=== PATIENT | male | born 1970 | race Caucasian/White ===

== ENCOUNTER 2019-04-07 20:50 | Inpatient (IN) | payer OTHER, SELFPAY ==
[2019-04-07] MEDS ORDERED: Pantoprazole 40 MG VIAL ONE (21:30)
[2019-04-07] MEDS ORDERED: Ondansetron PF 4 MG/2 ML Vial IVP PRN (23:13)
[2019-04-07] MEDS ORDERED: Acetaminophen 325 MG TAB PO PRN (23:13)
[2019-04-07] MEDS ORDERED: HYDROmorphone 0.5 MG/0.5 ML SYRINGE SLOW IVP SCH (23:30)
[2019-04-07] MEDS ORDERED: HYDROmorphone 0.5 MG/0.5 ML SYRINGE ONE (23:32)
[2019-04-07] MEDS ORDERED: Sodium Chloride 0.9% (PF) 10 ML VIAL FS PRN (23:33)
[2019-04-07] MEDS ORDERED: Pantoprazole 40 MG VIAL IVP SCH (23:45)
[2019-04-07 23:50] LABS: Lactic Acid 0.7 mmol/L (0.5-2.2)
--- NOTE | 2019-04-08 00:15 | HP ---
PRIMARY CARE PHYSICIAN: Silvia Swain DO CHIEF COMPLAINT: Abdominal pain since 03:45 p.m. HISTORY OF PRESENT ILLNESS: This is a 48-year-old male with past medical history of GERD, who developed diffuse abdominal pain this afternoon, minutes after eating crackers, described as sharp, burning, cramping, gas like pain that he has never experienced before and 15 minutes later, had a normal bowel movement with no relief of symptoms and proceeded to take Nexium and Rolaids with ongoing severity of pain rated as 10/10 in the absence of nausea or vomiting, prompting ED evaluation. The patient notes increase in belching episodes. He felt well all day and notes his last real meal was the night prior eating nachos loaded with hamburger meat. He denies any fevers, chills, angina, dysuria, prior abdominal surgeries, abdominal bloating and notes the pain has been constant, but intermittent in severity. In tertiary ER , CT abdomen and pelvis revealed a dilated mid small bowel 3 cm in width without obvious obstruction. The patient was administered with multiple doses of IV morphine 8 mg and 4 mg as well as IV fluid boluses, GI cocktail, and IV Toradol with no relief of symptoms. He was transferred to [facility] ER for further evaluation. At bedside, the patient is accompanied by spouse. He notes pain is recurring and probably 8/10 in severity. He has tried various positions to get comfortable with no relief. He has not passed any flatus since last bowel movement earlier this afternoon. He continues to feel unwell. He denies any chronic NSAID use and not sparing Excedrin for headaches. CBC, chemistry, coagulation profile, urinalysis , and toxicology screen were all unremarkable. ER physician notes the patient refused NG tube insertion. Furthermore, on-call surgeon was consulted and small bowel series was ordered. PAST MEDICAL HISTORY: GERD. PAST SURGICAL HISTORY: Right knee repair. SOCIAL HISTORY: The patient is , lives at home with his spouse. He denies illicit drug use. He dips snuff. He drinks 8-10 beers on a nightly basis without withdrawal symptoms. ALLERGIES: NONE DOCUMENTED. REVIEW OF SYSTEMS: Pertinent positives as per HPI. Remainder of review of systems negative. MEDICATIONS: Reviewed as per admission medication reconciliation. FAMILY HISTORY: The patient's father had MA in his 50s. The patient's grandfather also had an MA. PHYSICAL EXAMINATION: VITAL SIGNS: Temperature 98.4, pulse 68, blood pressure 146/103, oxygen saturation 97% on room air; respirations 18. GENERAL APPEARANCE: This is a middle-aged thin male, who is awake, alert, oriented, coherent, lucid, in moderate distress due to abdominal pain. HEENT: Normocephalic, atraumatic. No facial asymmetry. Mucous membranes are moist. Pupils equally round. NECK: Supple. CARDIOVASCULAR: S1, S2. Regular rate and rhythm. No harsh murmurs. No reproducible chest wall tenderness to palpation. LUNGS: Bilateral equal air entry on posterior auscultation. Symmetrical chest expansion noted. No wheezing or rales. ABDOMEN: Soft, nondistended. There is diffuse tenderness to palpation throughout the abdomen with limited evaluation. Hypoactive bowel sounds noted. EXTREMITIES: No edema, cyanosis, or deformity. SKIN: Warm to touch without rash or pallor or abrasion. LABORATORY DATA: WBC 9.2, H and H 14.7/46.3, platelets 227. Coagulation profile with INR 1.0. Sodium 137, potassium 3.5, chloride 98, bicarb 26, glucose 95, BUN and creatinine 7/0.97, GFR 82. LFTs unremarkable. Urinalysis unremarkable. Urine drug screen unremarkable. Tylenol level less than 3. Salicylate level less than 5. Serum alcohol less than 10. IMAGING STUDIES: CT abdomen and pelvis on 04/07/2019 reveals several dilated loops of mid small bowel up to 3 cm in width. Small bowel obstruction is possible, although the cause is not obvious. No acute findings otherwise. No inflammatory changes around the bowel to diagnose a reactive localized ileus. ASSESSMENT: 1. Acute onset abdominal pain, suspected secondary to possible partial small- bowel obstruction. The patient is admitted to observation status in [facility] unit. His pain continues to remain uncontrolled and has required multiple doses of IV morphine as well as IV Toradol and GI cocktail in the ER with any relief. We will obtain a serum lactic acid level to exclude bowel ischemia. We will administer one time dose of IV Dilaudid. Continue p.r.n. IV morphine for pain control. We will administer empiric GI prophylaxis with IV Protonix. On-call surgeon consulted and noted small-bowel series ordered per discussion with ER physician. We will maintain n.p.o. except for ice chips. We will monitor for symptomatic relief. Continue serial abdominal examinations. 2. Nicotine dependence with dip. The patient will require cessation counseling. 3. Chronic daily beer intake. The patient denies any signs of alcohol withdrawal. Monitor for withdrawal symptoms. 4. Gastroesophageal reflux disease. Continue IV PPI on once daily basis. 5. History of right knee repair. Gastrointestinal prophylaxis with Protonix. DVT prophylaxis with SCDs and ambulation. DISPOSITION: The patient will be admitted to observation status. Job ID: [id number] MTDD
[2019-04-08 01:40] VITALS: BMI 21.2
[2019-04-08] MEDS: Sodium Chloride 0.9% 1,000 ML IV SCH ×3 (01:53→17:11)
[2019-04-08] MEDS: Morphine 4 MG/ML VIAL SLOW IVP PRN ×3 (02:23→08:18)
[2019-04-08 06:04] LABS: Anion Gap 11 mmol/L (10-20); BUN (Urea Nitrogen) 5 mg/dL (8.9-20.6); Calc. Creatinine Clearance 93 mL/min (70-130); Calcium 8.4 mg/dL (7.8-10.44); Carbon Dioxide 29 mmol/L (22-29); Chloride 104 mmol/L (98-107); Estimated GFR-MDRD 89; Glucose 135 mg/dL (70-105); Sodium 140 mmol/L (136-145)
[2019-04-08] MEDS ORDERED: Pantoprazole 40 MG VIAL IVP SCH (09:00)
[2019-04-08] MEDS ORDERED: Multivitamins, Adult 10 ML, Thiamine HCl 100 MG, Folic Acid 1 MG in Dextrose 5 %-0.45 %... IV SCH ×2 (09:00→21:00)
[2019-04-08] MEDS ORDERED: Promethazine HCl 25 MG in Sodium Chloride 0.9% 50 ML IVPB SCH (09:04)
--- NOTE | 2019-04-08 11:38 | RAD ---
EXAM: XR Abdomen 2 View/1 View Cxr PROVIDED CLINICAL HISTORY: Small bowel obstruction COMPARISON: CT 04/07/2019 FINDINGS: Cardiac and mediastinal silhouette are within normal limits. No focal consolidation, pleural fluid or pneumothorax apparent. Multiple dilated loops of gas-filled small bowel with associated differential air-fluid levels. No ev idence for pneumoperitoneum. No radiographically apparent urinary tract calculi. IMPRESSION: 1. No evidence for an acute cardiopulmonary process. 2. Findings compatible with small bowel obstruction.
--- NOTE | 2019-04-08 15:59 | CON ---
DATE OF CONSULTATION: CHIEF COMPLAINT: Abdominal pain. HISTORY OF PRESENT ILLNESS: This is a 48-year-old male who was in his usual state of health until yesterday when he after eating crackers, developed a migratory crampy abdominal pain. Today, he had some vomiting, but then he said he felt some release and started passing flatus and the pain completely resolved and he is hungry. He has never had any black or bloody stool. He does have a family history of colon cancer in a paternal grandfather. He has never had a colonoscopy. PAST MEDICAL HISTORY: Gastroesophageal reflux. PAST SURGICAL HISTORY: Right knee repair. SOCIAL HISTORY: He is . Works in the oil field. Uses oral tobacco. Heavy alcohol. FAMILY HISTORY: Colon cancer. MEDICATIONS: No medications. ALLERGIES: NO KNOWN DRUG ALLERGIES. PHYSICAL EXAMINATION: VITAL SIGNS: Temperature 98, pulse 92, blood pressure 136/94. GENERAL: He is awake, alert, in no apparent distress. HEENT: Unremarkable. LUNGS: Clear. HEART: Regular rate and rhythm. ABDOMEN: Soft, nondistended, nontender. Normal bowel sounds. LABORATORY DATA: His white count is 9.2, H and H of 14 and 46, platelet count is 224. Electrolytes are fine. CT scan showed some dilatation of the mid small bowel. KUB shows air in the colon with some dilated central loops of bowel. ASSESSMENT: Partial small bowel obstruction versus ileus, resolved. PLAN: I recommend he have a GI workup with colonoscopy, EGD. We will start him on liquid diet. Job ID: [id number]
--- NOTE | 2019-04-08 22:27 | PDOC.HOSPP ---
- Subjective Encounter Date: 04/08/19 Encounter Time: 17:00 Subjective: Patient seen and examined for SBO. Had several BMs. Abd pain improving. Tolerating clears. No other complaints. No overnight events - Objective Vital Signs & Weight: Vital Signs (12 hours) Temp Pulse Resp BP Pulse Ox 04/08/19 19:46 99.0 F 93 16 130/91 H 98 04/08/19 16:38 98.2 F 79 20 111/74 95 04/08/19 11:50 98.0 F 92 20 136/94 H 96 Weight Weight 147 lb 11.2 oz I&O: 04/07/19 04/08/19 04/09/19 06:59 06:59 06:59 Intake Total 770 2100 Balance 770 2100 Result Diagrams: 04/09/19 05:20 Radiology Reviewed by me: Yes (SBO) Hospitalist ROS - Review of Systems Respiratory: denies: cough, dry, shortness of breath, hemoptysis, SOB with excertion, pleuritic pain, sputum, wheezing, other Cardiovascular: denies: chest pain, palpitations, orthopnea, paroxysmal noc. dyspnea, edema, light headedness, other - Medication Medications: Active Medications Generic Name Dose Route Start Last Admin Trade Name Freq PRN Reason Stop Dose Admin Morphine Sulfate 4 mg 04/07/19 23:17 04/08/19 08:18 Morphine SLOW IVP 4 mg Q3H PRN Administration Severe Pain (7-10) Ondansetron HCl 4 mg 04/07/19 23:13 04/08/19 08:11 Zofran IVP 4 mg Q6H PRN Administration Nausea/Vomiting Pantoprazole Sodium 40 mg 04/08/19 09:00 04/08/19 08:12 Protonix IVP 40 mg DAILY PINO Administration - Exam General Appearance: NAD Heart: RRR, no gallops Respiratory: no wheezes, no rales Gastrointestinal: soft, non-tender, non-distended, normal bowel sounds ( hyperactive) Extremities: no edema Hosp A/P - Plan DVT proph w/SCDs SBO GERD Tobacco dep Chronic alcohol use CKD 2 PLAN: Reduce IVF Change PPI to PO Advance diet AM labs EGD/Colon as outpt
[2019-04-09 05:56] LABS: ALT (SGPT) 22 U/L (8-55); AST (SGOT) 15 U/L (5-34); Albumin 3.4 g/dL (3.5-5.0); Alkaline Phosphatase 63 U/L (40-110); Anion Gap 10 mmol/L (10-20); BUN (Urea Nitrogen) 5 mg/dL (8.9-20.6); Bilirubin, Total 0.8 mg/dL (0.2-1.2); Calc. Creatinine Clearance 81 mL/min (70-130); Carbon Dioxide 29 mmol/L (22-29); Chloride 107 mmol/L (98-107); Estimated GFR-MDRD 76; Globulin 2.3 g/dL (2.4-3.5); Glucose 121 mg/dL (70-105); Magnesium 2.1 mg/dL (1.6-2.6); Phosphorus 3.1 mg/dL (2.3-4.7); Potassium 4.5 mmol/L (3.5-5.1); Protein, Total 5.7 g/dL (6.0-8.3); Sodium 141 mmol/L (136-145)
[2019-04-09] MEDS ORDERED: Folic Acid 1 MG TAB PO SCH (09:00)
[2019-04-09] MEDS ORDERED: Multivit, Therapeutic 1 TAB PO SCH (09:00)
[2019-04-09] MEDS ORDERED: Thiamine 100 MG TAB PO SCH (09:00)
--- NOTE | 2019-04-09 15:10 | DIS ---
DATE OF ADMISSION: 04/07/2019 DATE OF DISCHARGE: 04/09/2019 DISCHARGE DISPOSITION: Home. FOLLOWUP: 1. Follow up with primary care physician, Dr. Silvia Swain in 1 week. 2. Follow up with GI clinic for EGD and colonoscopy. ALLERGIES: NO KNOWN DRUG ALLERGIES. DISCHARGE MEDICATIONS: 1. [id number] thiamine, folic acid, and multivitamin. 2. Protonix 40 mg daily for 1 month was prescribed. BRIEF HOSPITAL COURSE: The patient is a 48-year-old male with GERD and chronic alcohol use, presented to the emergency room with abdominal discomfort on April,. The CT scan in the emergency room was concerning for small bowel obstruction. He had abdominal x-ray next morning that was that was compatible with small bowel obstruction. He was kept n.p.o. His abdominal discomfort resolved spontaneously without any intervention. He was evaluated by General Surgery, Dr. Soto. His diet has been gradually advanced. He denies any nausea, vomiting, and abdominal pain at this time. An outpatient EGD and colonoscopy are recommended. He has been cleared by Dr. Soto for discharge. FINAL DIAGNOSES: 1. Abdominal pain secondary to small bowel obstruction, resolved. 2. Tobacco dependence. The patient was counseled. 3. Gastroesophageal reflux disease. The patient has been started on PPIs for 1 month. 4. Chronic alcohol use. The patient was counseled. 5. Chronic kidney disease stage 2. PLAN: Plan was discussed with the patient in detail. He stated understanding. Job ID: [id number]
[2019-04-09 15:51] VITALS: BP 134/81; TEMP 98.9
== END 2019-04-09 15:58 | disposition home or self-care (01) | DRG 390 ==
LOC: ERS 20:50 → ERHOLD 22:07 → OBSVTOIN 22:07 → T4-B 04-08 00:58
PROVIDERS: ADMIT Hospitalist; ATTEND Hospitalist
DX: K56.600 Partial intestinal obstruction, unspecified as to cause (principal); K21.9 Gastro-esophageal reflux disease without esophagitis; N18.2 Chronic kidney disease, stage 2 (mild); F17.290 Nicotine dependence, other tobacco product, uncomplicated
CPT/HCPCS: 36415; 74022; 80048; 80053; 83605; 83735; 84100; 96365; 96366; 96375; C9113; J1170; J2270; J2405; J2550; J3411; J7042

== ENCOUNTER 2024-04-23 12:02 | Inpatient (IN) | payer BC, SELFPAY ==
[2024-04-23 13:26] LABS: #Basophils 0.05 10x3/uL (0.0-0.2); %Basophils 0.3 % (0.0-1.0); %Eosinophils 0.5 % (0.0-10.0); %Lymphocytes 4.1 % (21.0-51.0); %Monocytes 7.7 % (0.0-10.0); %Neutrophils 86.8 % (42.0-75.0); Hematocrit 31.7 % (42.0-52.0); Hemoglobin 11.4 g/dL (14.0-18.0); Mean Corpuscular Hemoglobin 32.5 pg (27.0-31.0); Mean Corpuscular Volume 90.3 fL (78.0-98.0); Mean Platelet Volume 9.6 fL (7.4-10.4); Platelet Count 178 10x3/uL (130-400); RBC Distribution Width 11.4 % (11.5-14.5); Red Blood Cell (RBC) Count 3.51 mill/uL (4.70-6.10)
[2024-04-23 13:41] LABS: Lipase 53 U/L (8-78)
[2024-04-23 13:42] LABS: Acetaminophen Less than 10 mcg/mL (Less than 10); Alcohol Less than 10.0 mg/dL (Less than 10); Salicylate Less than 8.0 mg/dL (Less than 8.0)
[2024-04-23 13:43] LABS: ALT (SGPT) 84 U/L (Less than 45); AST (SGOT) 74 U/L (11-34); Albumin 4.1 g/dL (3.1-4.5); Alkaline Phosphatase 46 U/L (40-110); Anion Gap 13 mmol/L (10-20); BUN (Urea Nitrogen) 8 mg/dL (8.4-25.7); Bilirubin, Total 1.5 mg/dL (0.3-1.2); CK (CPK) 322 U/L (30-200); Calc. Creatinine Clearance 0 mL/min (70-130); Calcium 8.6 mg/dL (7.8-10.44); Carbon Dioxide 21 mmol/L (23-31); Chloride 98 mmol/L (98-107); Estimated GFR 104; Globulin 2.6 g/dL (2.4-3.5); Glucose 115 mg/dL (80-115); Potassium 3.2 mmol/L (3.5-5.1); Protein, Total 6.7 g/dL (5.8-8.1); Sodium 129 mmol/L (136-145)
[2024-04-23 13:58] LABS: Prothrombin Time 13.3 sec (12.0-14.7)
[2024-04-23 13:59] LABS: PTT 24.1 sec (22.9-36.1)
[2024-04-23] MEDS ORDERED: Folic Acid 5 MG/ML MDV IVP SCH (14:15)
[2024-04-23] MEDS ORDERED: CEFAZOLIN 2 GM in Sodium Chloride 0.9% 100 ML IVPB SCH (16:00)
[2024-04-23] MEDS ORDERED: Glucagon 1 MG/ML KIT IM PRN (16:34)
[2024-04-23] MEDS ORDERED: Dextrose 50% Abboject 50 ML SYRINGE SLOW IVP PRN (16:34)
[2024-04-23] MEDS ORDERED: Ondansetron ODT 4 MG TAB PO PRN (16:34)
[2024-04-23] MEDS ORDERED: Ondansetron PF 4 MG/2 ML Vial IVP PRN (16:34)
[2024-04-23] MEDS ORDERED: Ipratropium/Albuterol 3 ML NEB NEB PRN (16:34)
[2024-04-23] MEDS ORDERED: Dextrose 5% in Water 1,000 ML IV PRN (16:34)
[2024-04-23] MEDS ORDERED: TETANUS, DIPHTHERIA TOX,ADULT (TDVAX) 0.5 ML VIAL IM ONE (16:34)
[2024-04-23 17:40] LABS: Amphetamine Not Detected (NotDetected); Barbiturates Screen Not Detected (NotDetected); Benzodiazepine Screen Detected (NotDetected); Cocaine Metabolite Screen Not Detected (NotDetected); Methadone Not Detected (NotDetected); Methamphetamine Not Detected (NotDetected); Opiate Screen Not Detected (NotDetected); Oxycodone Screen Not Detected (NotDetected); Phencyclidine (PCP) Not Detected (NotDetected); THC/Cannabinoid Screen Not Detected (NotDetected); Tricyclic Screen Not Detected (NotDetected)
[2024-04-23] MEDS ORDERED: Electrolyte Replacement Protocol 1 EACH FS PRN (19:12)
[2024-04-23] MEDS ORDERED: HYDROcodone/Acetaminophen 5/325 mg Tablet ONE (19:14)
[2024-04-23] MEDS ORDERED: Lorazepam 2 MG/ML VIAL IM PRN (19:59)
[2024-04-23] MEDS ORDERED: Lorazepam 1 MG TAB PO PRN (19:59)
[2024-04-23] MEDS: Folic Acid 1 MG in Admixture Fee 1 EACH IVP SCH (20:25)
[2024-04-23] MEDS: Lorazepam 1 MG TAB PO SCH (20:25)
[2024-04-23] MEDS ORDERED: Famotidine 20 MG TAB PO SCH (21:00)
[2024-04-23 21:28] VITALS: BMI 22.3
[2024-04-23] MEDS: Acetaminophen/Codeine 30-300mg Tablet PO PRN (21:37)
[2024-04-23] MEDS: Thiamine HCl 200 MG/2 ML VIAL SLOW IVP SCH (21:40)
[2024-04-23 21:49] LABS: #Basophils 0.04 10x3/uL (0.0-0.2); %Basophils 0.4 % (0.0-1.0); %Eosinophils 0.7 % (0.0-10.0); %Lymphocytes 6.9 % (21.0-51.0); %Monocytes 12.5 % (0.0-10.0); Hematocrit 28.4 % (42.0-52.0); Hemoglobin 9.6 g/dL (14.0-18.0); Mean Corpuscular HGB CONC 33.8 g/dL (32.0-36.0); Mean Corpuscular Hemoglobin 31.7 pg (27.0-31.0); Mean Corpuscular Volume 93.7 fL (78.0-98.0); Mean Platelet Volume 9.6 fL (7.4-10.4); Platelet Count 147 10x3/uL (130-400); RBC Distribution Width 11.5 % (11.5-14.5); Red Blood Cell (RBC) Count 3.03 mill/uL (4.70-6.10)
[2024-04-23] MEDS: Dexmedetomidine In 0.9 % NaCl 100 ML IVPB SCH (22:37)
[2024-04-24 04:43] LABS: #Basophils 0.03 10x3/uL (0.0-0.2); %Basophils 0.4 % (0.0-1.0); %Eosinophils 2.4 % (0.0-10.0); %Lymphocytes 10.5 % (21.0-51.0); %Monocytes 13.4 % (0.0-10.0); %Neutrophils 72.8 % (42.0-75.0); Hematocrit 27.6 % (42.0-52.0); Hemoglobin 9.5 g/dL (14.0-18.0); Mean Corpuscular HGB CONC 34.4 g/dL (32.0-36.0); Mean Corpuscular Hemoglobin 32.1 pg (27.0-31.0); Mean Corpuscular Volume 93.2 fL (78.0-98.0); Mean Platelet Volume 9.6 fL (7.4-10.4); Platelet Count 143 10x3/uL (130-400); RBC Distribution Width 11.5 % (11.5-14.5); Red Blood Cell (RBC) Count 2.96 mill/uL (4.70-6.10)
[2024-04-24 04:59] LABS: Anion Gap 12 mmol/L (10-20); BUN (Urea Nitrogen) 5 mg/dL (8.4-25.7); Calc. Creatinine Clearance 114 mL/min (70-130); Calcium 8.4 mg/dL (7.8-10.44); Carbon Dioxide 21 mmol/L (23-31); Chloride 108 mmol/L (98-107); Estimated GFR 105; Glucose 139 mg/dL (80-115); Sodium 138 mmol/L (136-145)
[2024-04-24] MEDS: Boostrix 0.5 ML (Tdap) VIAL (>/=7 yrs of age) IM ONE (06:52)
[2024-04-24] MEDS: Potassium Chloride 20 MEQ in Premix 1 BAG IVPB SCH ×2 (08:57→20:12)
[2024-04-24] MEDS: Magnesium 2 GM/50 ML(in water) 2 GM in Premix 1 BAG IVPB SCH (08:58)
[2024-04-24] MEDS: Pantoprazole 40 MG VIAL IVP SCH (08:58)
[2024-04-24] MEDS: Multivit, Therapeutic 1 TAB PO SCH (09:15)
[2024-04-24] MEDS: Folic Acid 1 MG TAB PO SCH (09:15)
[2024-04-24] MEDS ORDERED: Midazolam HCl 2 mg/2 ml Vial ONE (11:11)
[2024-04-24] MEDS ORDERED: PROPOFOL 0 ML ONE (11:11)
[2024-04-24] MEDS ORDERED: SUCCINYLCHOLINE/SOD CL,ISO/PF 200 MG/10 ML SYRINGE FS ONE (11:11)
[2024-04-24] MEDS ORDERED: fentaNYL PF 100 MCG/2 ML SYRINGE ONE (11:11)
[2024-04-24] MEDS: Methocarbamol 500 MG TAB PO PRN (13:10)
[2024-04-24] MEDS ORDERED: ALPRAZolam 0.25 MG TAB PO PRN (13:56)
[2024-04-24] MEDS ORDERED: Lorazepam 1 MG TAB PO PRN ×2 (13:57→19:59)
[2024-04-24] MEDS: Lorazepam 1 MG TAB PO SCH (15:05)
[2024-04-24] MEDS: Enoxaparin 40 MG (0.4 mL) SYRINGE SC SCH (15:05)
[2024-04-24 16:06] LABS: Potassium 3.3 mmol/L (3.5-5.1)
[2024-04-24] MEDS: busPIRone HCl 10 MG TAB PO SCH (21:38)
[2024-04-24] MEDS: Metoprolol Tartrate 25 MG TAB PO SCH (21:39)
[2024-04-24] MEDS: HYDROcodone/Acetaminophen 5/325 mg Tablet PO PRN (21:39)
[2024-04-25 04:58] LABS: #Basophils 0.08 10x3/uL (0.0-0.2); %Basophils 0.7 % (0.0-1.0); %Eosinophils 2.7 % (0.0-10.0); %Lymphocytes 8.5 % (21.0-51.0); %Monocytes 12.1 % (0.0-10.0); %Neutrophils 75.4 % (42.0-75.0); Hematocrit 27.2 % (42.0-52.0); Hemoglobin 9.2 g/dL (14.0-18.0); Mean Corpuscular HGB CONC 33.8 g/dL (32.0-36.0); Mean Corpuscular Hemoglobin 32.3 pg (27.0-31.0); Mean Corpuscular Volume 95.4 fL (78.0-98.0); Platelet Count 145 10x3/uL (130-400); RBC Distribution Width 11.5 % (11.5-14.5); Red Blood Cell (RBC) Count 2.85 mill/uL (4.70-6.10)
[2024-04-25 06:47] LABS: Phosphorus 3.8 mg/dL (2.5-4.5)
[2024-04-25 06:49] LABS: ALT (SGPT) 51 U/L (Less than 45); AST (SGOT) 34 U/L (11-34); Albumin 3.5 g/dL (3.1-4.5); Alkaline Phosphatase 39 U/L (40-110); BUN (Urea Nitrogen) 5 mg/dL (8.4-25.7); Bilirubin, Direct 0.4 mg/dL (0.1-0.3); Bilirubin, Total 1.1 mg/dL (0.3-1.2); Calc. Creatinine Clearance 130 mL/min (70-130); Calcium 8.3 mg/dL (7.8-10.44); Carbon Dioxide 22 mmol/L (22-29); Estimated GFR 112; Globulin 2.7 g/dL (2.4-3.5); Glucose 130 mg/dL (70-105); Magnesium 2.2 mg/dL (1.6-2.6); Protein, Total 6.2 g/dL (6.0-8.3)
[2024-04-25 08:37] LABS: Anion Gap 11 mmol/L (10-20); Chloride 106 mmol/L (98-107); Potassium 3.1 mmol/L (3.5-5.1); Sodium 135 mmol/L (136-145)
[2024-04-25] MEDS ORDERED: Potassium Chloride 40 MEQ in Sodium Chloride 0.9% 250 ML 250 ML IVPB SCH (09:00)
[2024-04-25] MEDS ORDERED: PROPOFOL 20 ML ONE (09:02)
[2024-04-25] MEDS ORDERED: Lidocaine 1% PF 5 ML VIAL ONE (09:02)
[2024-04-25] MEDS ORDERED: fentaNYL PF 100 MCG/2 ML SYRINGE ONE ×2 (09:27→10:17)
[2024-04-25] MEDS ORDERED: Midazolam HCl 2 mg/2 ml Vial ONE (09:27)
[2024-04-25] MEDS ORDERED: EPINEPHrine 1 MG/ML VIAL ONE (09:56)
[2024-04-25] MEDS ORDERED: Bupivacaine PF 0.5% 30 ML VIAL ONE (09:56)
[2024-04-25] MEDS ORDERED: CEFAZOLIN 1 GM VIAL ONE (10:10)
[2024-04-25] MEDS ORDERED: Dexamethasone 4 mg/ml Vial ONE (10:14)
[2024-04-25] MEDS ORDERED: Ondansetron PF 4 MG/2 ML Vial ONE (10:55)
[2024-04-25] MEDS ORDERED: Ondansetron HCl/PF 4 MG/2 ML Vial IVP PRN (11:07)
[2024-04-25] MEDS ORDERED: Promethazine HCl 25 MG/ML VIAL IM PRN (11:07)
[2024-04-25] MEDS: Potassium Chloride 20 MEQ TAB PO SCH (12:12)
[2024-04-25] MEDS: Amlodipine 5 MG TAB PO SCH (12:13)
[2024-04-25] MEDS: Morphine 2 MG/ML VIAL SLOW IVP PRN (13:08)
[2024-04-25] MEDS ORDERED: Lorazepam 1 MG TAB PO PRN ×2 (13:57→19:59)
[2024-04-25] MEDS: hydrALAZINE 20 MG/ML VIAL SLOW IVP PRN (14:19)
[2024-04-25] MEDS: Morphine 4 MG/ML VIAL SLOW IVP PRN (14:49)
[2024-04-25 15:08] LABS: Potassium 3.4 mmol/L (3.5-5.1)
[2024-04-25] MEDS: Acetaminophen 325 MG TAB PO PRN (17:01)
[2024-04-25] MEDS: CEFAZOLIN 2 GM in Sodium Chloride 0.9% 100 ML IVPB SCH (18:17)
[2024-04-25] MEDS ORDERED: Lorazepam 0.5 MG TAB PO SCH (20:00)
[2024-04-26 04:11] LABS: #Basophils 0.04 10x3/uL (0.0-0.2); %Basophils 0.4 % (0.0-1.0); %Eosinophils 1.3 % (0.0-10.0); %Lymphocytes 9.1 % (21.0-51.0); %Monocytes 19.2 % (0.0-10.0); %Neutrophils 69.4 % (42.0-75.0); Hematocrit 26.7 % (42.0-52.0); Hemoglobin 8.9 g/dL (14.0-18.0); Mean Corpuscular HGB CONC 33.3 g/dL (32.0-36.0); Mean Corpuscular Hemoglobin 31.8 pg (27.0-31.0); Mean Corpuscular Volume 95.4 fL (78.0-98.0); Mean Platelet Volume 10.3 fL (7.4-10.4); Platelet Count 201 10x3/uL (130-400); RBC Distribution Width 11.4 % (11.5-14.5)
[2024-04-26 04:28] LABS: Anion Gap 12 mmol/L (10-20); BUN (Urea Nitrogen) 7 mg/dL (8.4-25.7); Calc. Creatinine Clearance 115 mL/min (70-130); Calcium 8.4 mg/dL (7.8-10.44); Carbon Dioxide 23 mmol/L (22-29); Chloride 100 mmol/L (98-107); Estimated GFR 108; Glucose 135 mg/dL (70-105); Potassium 3.5 mmol/L (3.5-5.1); Sodium 131 mmol/L (136-145)
[2024-04-26] MEDS: Potassium Chloride 20 MEQ TAB PO SCH (09:04)
[2024-04-26 13:55] LABS: Potassium 3.6 mmol/L (3.5-5.1)
[2024-04-26] MEDS ORDERED: Lorazepam 1 MG TAB PO PRN (13:57)
[2024-04-26] MEDS: Lorazepam 0.5 MG TAB PO SCH (14:13)
[2024-04-26] MEDS: Thiamine 100 MG TAB PO SCH (19:29)
[2024-04-26] MEDS ORDERED: Lorazepam 0.5 MG TAB PO PRN (19:59)
[2024-04-27] MEDS ORDERED: Lorazepam 0.5 MG TAB PO PRN (13:57)
[2024-04-28 07:50] LABS: Hematocrit 26.6 % (42.0-52.0); Hemoglobin 8.9 g/dL (14.0-18.0); Mean Corpuscular HGB CONC 33.5 g/dL (32.0-36.0); Mean Corpuscular Volume 92.7 fL (78.0-98.0); Mean Platelet Volume 9.8 fL (7.4-10.4); Platelet Count 387 10x3/uL (130-400); RBC Distribution Width 11.5 % (11.5-14.5); Red Blood Cell (RBC) Count 2.87 mill/uL (4.70-6.10)
[2024-04-28 07:59] LABS: Anion Gap 13 mmol/L (10-20); BUN (Urea Nitrogen) 9 mg/dL (8.4-25.7); Calc. Creatinine Clearance 132 mL/min (70-130); Carbon Dioxide 24 mmol/L (22-29); Chloride 99 mmol/L (98-107); Estimated GFR 113; Glucose 122 mg/dL (70-105); Potassium 3.4 mmol/L (3.5-5.1); Sodium 133 mmol/L (136-145)
[2024-04-28] MEDS: Enoxaparin 40 MG (0.4 mL) SYRINGE SC SCH (08:07)
[2024-04-28] MEDS: Potassium Chloride 20 MEQ TAB PO SCH (08:30)
[2024-04-28] MEDS: Magnesium 2 GM/50 ML(in water) 2 GM in Premix 1 BAG IVPB SCH (08:33)
[2024-04-28 08:49] LABS: Band 2 % (5-11); Eosinophils 8 % (0-10); Hypochromia SLIGHT = 6-15 cells HPF (0-5); Large Platelets 5.9 % (0-5); Lymphocytes 9 % (21-51); Monocytes 15 % (0-10); Neutrophil 65 % (42-75); Platelet Adequacy Comment Platelets Normal; Polychromasia SLIGHT = 2-3 cells HPF (0-2); Promyelocytes 1 % (0-0); Target Cells SLIGHT = 2-5 cells HPF (0-1)
[2024-04-28] MEDS ORDERED: ALPRAZolam 0.25 MG TAB PO PRN (09:00)
[2024-04-28 16:19] VITALS: BP 125/77; TEMP 99.1
== END 2024-04-28 16:50 | disposition home or self-care (01) | DRG 493 ==
LOC: ERS 12:02 → IMCU/EMU 16:42 → EDBD 16:42 → SURG B 04-26 20:14
PROVIDERS: ADMIT Surgery; ATTEND Surgery
PROC: 0QSH04Z Reposition Left Tibia with Internal Fixation Device, Open Approach (ICD-10-PCS; principal; 2024-04-23)
DX: S82.142A Displaced bicondylar fracture of left tibia, initial encounter for closed fracture (principal); E87.1 Hypo-osmolality and hyponatremia; F10.239 Alcohol dependence with withdrawal, unspecified; F10.231 Alcohol dependence with withdrawal delirium; S82.832A Other fracture of upper and lower end of left fibula, initial encounter for closed fracture; I10 Essential (primary) hypertension; R56.9 Unspecified convulsions; R74.01 Elevation of levels of liver transaminase levels; F17.210 Nicotine dependence, cigarettes, uncomplicated; X58.XXXA Exposure to other specified factors, initial encounter; Z79.899 Other long term (current) drug therapy
CPT/HCPCS: 36415; 70450; 71045; 80048; 80053; 80306; 80307; 82248; 82550; 83605; 83690; 83735; 84100; 84484; 85025; 85610; 85730; 90715; 93306; 96361; 96374; 96375; C1713; C1889; G0390; J0171; J0360; J0665; J0690; J1100; J1650; J2250; J2270; J2272; J2405; J2470; J2704; J3411; J3475; J3480